=== PATIENT | male | born 1980 | race Caucasian/White ===

== ENCOUNTER 2016-12-12 10:14 | Inpatient (IN) | payer OTHER ==
[~2016-12-12] VITALS: Ht 167.6 cm; Wt 64.7 kg
[~2016-12-12 10:14] MED LIST: ACIDOPHILUS LA1 EACH PO; AMOXICILLIN875 MG PO; CALCIUM ACETAT667 M2 PO; CIPROFLOXACIN500 M1 PO; DETROL2 MG PO; FLAGYL500 MG PO; IMODIUM MS REL1 EACH PO; IRON325 M1 PO; IRON325 MG PO; LEVAQUIN250 MG PO; LINEZOLID600 MG PO; NABI650T PO; NORCO 5/3251 TABLET PO; TYLENOL EXTRA500 MG PO; VITAMIN B-12500 MC3 PO; VITAMIN C500 M1 PO; VITAMIN D5000 UNIT PO; VITAMIN E400 UNIT PO
[2016-12-12 10:39] VITALS: BP 119/66
[2016-12-12 16:59] VITALS: BP 93/54
[2016-12-12 18:10] VITALS: BP 93/54
[2016-12-12 20:01] VITALS: BP 140/68
[2016-12-12 23:24] VITALS: BP 95/53
[2016-12-13] VITALS (7 sets, daily range): BP systolic 90–109; BP diastolic 53–59
[2016-12-13] MEDS ORDERED: DETROL LA2 MG PO (09:10)
[2016-12-14 00:30] VITALS: BP 105/60
[2016-12-14 03:59] VITALS: BP 128/72
[2016-12-14 09:03] VITALS: BP 103/54
[2016-12-14 16:59] VITALS: BP 100/55
[2016-12-14 23:06] VITALS: BP 103/55
[2016-12-15 06:02] LABS: ANION GAP 4 MEQ/L (2-14); CHLORIDE 109 MEQ/L (99-109); GFR ESTIMATE (CALCULATED) 28 mL/min/; GLUCOSE 99 mg/dL (70-99); POTASSIUM 4.8 MEQ/L (3.7-5.4); SAMPLE HEMOLYSIS CHECK 0; SAMPLE ICTERIC CHECK 0; SAMPLE LIPEMIA CHECK 0; SODIUM 139 MEQ/L (136-147); UREA NITROGEN (BUN) 31 mg/dL (9-23)
[2016-12-15 09:33] VITALS: BP 98/53
[2016-12-15 16:41] VITALS: BP 98/52
[2016-12-15 21:00] VITALS: BP 99/54
[2016-12-16 08:02] VITALS: BP 97/56
== END 2016-12-16 10:49 | disposition home health service (06) | DRG 570 ==
LOC: SDC 10:14 → EDSTATUS 11:03 → 2SOUTH 11:04 → 3EAST 13:05 → SDC 13:22 → EDSTATUS 13:22 → SDC 14:12 → 3EAST 15:48
PROVIDERS: Surgery Plastic and Reconstructive Surgery
PROC: 0KX Muscles, Transfer (ICD-10-PCS; principal; 2016-12-12)
PROC: 0JBM0ZZ Excision of Left Upper Leg Subcutaneous Tissue and Fascia, Open Approach (ICD-10-PCS; principal; 2016-12-12)
DX: L89.223 Pressure ulcer of left hip, stage 3 (principal); Q05.9 Spina bifida, unspecified; G82.20 Paraplegia, unspecified
CPT/HCPCS: 80048; 88304; 94799; J0131; J1100; J1170; J1580; J2250; J2405; J2710; J2765

== ENCOUNTER → 2017-02-24 | Outpatient (CLI) | payer OTHER ==
[~2017-02-24] MED LIST changes: +DETROL LA2 MG PO
== END | disposition home or self-care (01) ==
LOC: AMB 08:30
DX: Z09 Encounter for follow-up examination after completed treatment for conditions other than malignant neoplasm (principal); Z98.890 Other specified postprocedural states; G82.20 Paraplegia, unspecified; Q05.9 Spina bifida, unspecified
CPT/HCPCS: 99212